=== PATIENT | male | born 1995 | race Hispanic/Latino ===

== ENCOUNTER 2022-04-07 12:34 | Outpatient (CLI) | payer BC ==
[2022-04-07 14:03] LABS: Mucous/LPF 1+ LPF (<2+); RBC/HPF 0-3 HPF (0-3); Squamous Epithelial 0-3 HPF (0-3); WBC/HPF 0-3 HPF (0-3)
== END 2022-04-07 12:35 | disposition home or self-care (01) ==
LOC: LABBT 12:34
PROVIDERS: ATTEND Urology
DX: Z01.812 Encounter for preprocedural laboratory examination (principal); N47.1 Phimosis; N48.89 Other specified disorders of penis; R39.198 Other difficulties with micturition; Z20.822 Contact with and (suspected) exposure to COVID-19
CPT/HCPCS: 81015; 87086; 87811

== ENCOUNTER 2022-04-08 10:20 | Day surgery (SDC) | payer BC ==
[2022-04-07 13:07] VITALS: BMI 26.7
[2022-04-08 11:28] LABS: Bacteria/HPF None Seen HPF (None Seen); Bilirubin Negative (Negative); Blood, Urine Negative (Negative); Clarity Clear (Clear); Glucose, Urine (Dipstick) Normal (Negative); Ketone, Urine Negative (Negative); Leukocyte Negative Leu/uL (Negative); Nitrite Negative (Negative); Protein, Urine (Dipstick) Negative (Neg-Trace); RBC/HPF 0-3 HPF (0-3); Specific Gravity, Urine 1.026 (1.002-1.036); Squamous Epithelial None Seen HPF (0-3); Urobilinogen Normal mg/dL (Less than 2); WBC/HPF 0-3 HPF (0-3); pH, Urine 6.5 (5.0-9.0)
[2022-04-08] MEDS ORDERED: Bacitracin Zinc Ointment 30 gm TUBE ONE (11:44)
[2022-04-08] MEDS ORDERED: Bupivacaine 0.25% HCL 30 ML VIAL ONE (11:44)
[2022-04-08] MEDS ORDERED: fentaNYL Citrate/PF 100 MCG/2 ML SYRINGE ONE ×2 (11:55→14:02)
[2022-04-08] MEDS ORDERED: Midazolam HCl 2 mg/2 ml Vial ONE ×2 (11:56→12:03)
[2022-04-08] MEDS ORDERED: CEFAZOLIN 1 GM VIAL ONE (12:04)
[2022-04-08] MEDS ORDERED: Sodium Chloride 0.9% 100 ML ONE (12:04)
[2022-04-08] MEDS ORDERED: Lidocaine 1% PF 5 ML VIAL ONE (12:11)
[2022-04-08] MEDS ORDERED: PROPOFOL 200 MG/20 ML VIAL ONE (12:11)
[2022-04-08] MEDS ORDERED: Dexamethasone 20 MG/5 ML VIAL ONE (12:11)
[2022-04-08] MEDS ORDERED: Ondansetron PF 4 MG/2 ML Vial ONE (12:11)
[2022-04-08] MEDS ORDERED: HYDROcodone/Acetaminophen 5/325 mg Tablet ONE (14:45)
== END 2022-04-08 15:25 | disposition home or self-care (01) ==
LOC: SDC 10:20
PROVIDERS: ATTEND Urology
PROC: 0VTTXZZ Resection of Prepuce, External Approach (ICD-10-PCS; principal; 2022-04-08)
DX: N47.1 Phimosis (principal); N47.7 Other inflammatory diseases of prepuce; J45.909 Unspecified asthma, uncomplicated; Z87.891 Personal history of nicotine dependence
CPT/HCPCS: 81001; 88304; J0690; J1100; J2250; J2405; J2704; J3490; S0020